=== PATIENT | female | born 1975 | race African-American/Black ===

== ENCOUNTER 2019-04-18 15:38 | Emergency (ER) | payer OTHER ==
[~2019-04-18] VITALS: Ht 157.5 cm; Wt 108.1 kg
[~2019-04-18 15:38] MED LIST: ACCUNEB SO1.25 MG/1 INH; AMOXICILLIN 50500 MG PO; MOBIC7.5 MG PO
[2019-04-18 16:26] LABS: ABSOLUTE BASOPHILS 0.1 thou/uL (0.0-0.2); ABSOLUTE EOSINOPHILS 0.1 thou/uL (0.0-0.7); ABSOLUTE LYMPHOCYTES 1.1 thou/uL (0.8-5.3); ABSOLUTE MONOCYTES 0.4 thou/uL (0.0-1.2); ABSOLUTE NEUTROPHILS 2.7 thou/uL (1.6-8.1); BASOPHILS 1.4 %; EOSINOPHILS 2.7 %; HEMATOCRIT 31.6 % (37.0-47.0); HEMOGLOBIN 9.7 gm/dL (12.0-15.0); MCHC 30.8 g/dL (28.0-37.0); MCV 71.4 fL (80.0-100.0); MPV 9.6 fl. (7.2-11.1); NUCLEATED RBCS 0 /100WBC; PLATELET COUNT* 270 thou/uL (150-400); POLYS 61.9 %; RBC 4.42 mil/uL (4.20-5.00); RDW-CV 18.9 % (10.5-14.5); WBC 4.4 thou/uL (4.0-11.0)
[2019-04-18 16:44] LABS: CALCIUM 9.3 mg/dL (8.5-10.1); CREATININE 0.8 mg/dL (0.6-1.3); POTASSIUM 3.9 mmol/L (3.5-5.1)
[2019-04-18 16:48] LABS: ALBUMIN 3.4 g/dL (3.4-5.0); TOTAL BILIRUBIN 0.3 mg/dL (<0.1-1.0); TOTAL PROTEIN 7.9 g/dL (6.4-8.2)
[2019-04-18 17:57] LABS: ANISOCYTOSIS 1+; HYPOCHROMASIA 2+; MICROCYTES 2+; PLATELET ESTIMATE ADEQUATE
[2019-04-18 17:58] LABS: LARGE PLATELETS RARE
[2019-04-18 17:59] LABS: POLYCHROMASIA Occasional
[2019-04-18 18:07] VITALS: BP 174/115
[2019-04-18 18:23] LABS: URINE BILIRUBIN NEGATIVE (Negative); URINE BLOOD 2+ (Negative); URINE CLARITY CLEAR; URINE COLOR YELLOW; URINE GLUCOSE-RANDOM NEGATIVE (Negative); URINE KETONES NEGATIVE (Negative); URINE LEUKOCYTES-REFLEX TRACE (Negative); URINE NITRITE-REFLEX NEGATIVE (Negative); URINE PROTEIN NEGATIVE (Negative); URINE UROBILINOGEN 0.2 E.U./dl (0.2-1.0)
[2019-04-18 18:32] LABS: MUCUS None Seen strn/LPF (None Seen); SQUAMOUS >10 Many /LPF (0-3); URINE RBC 3-10 Few /HPF (0-2)
[2019-04-18 18:33] LABS: CASTS None Seen /LPF (None Seen); CRYSTALS None Seen /LPF (None Seen); URINE WBC-REFLEX 6-15 Few /HPF (0-5)
--- NOTE | 2019-04-21 08:29 | EKG ---
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
== END 2019-04-18 18:25 | disposition home or self-care (01) ==
LOC: M.ERS 15:38
PROVIDERS: Nurse Practitioner Family
DX: R20.2 Paresthesia of skin (principal); J45.909 Unspecified asthma, uncomplicated

== ENCOUNTER 2020-01-03 17:18 | Emergency (ER) | payer OTHER ==
[~2020-01-03] VITALS: Ht 157.5 cm; Wt 113.4 kg
[2020-01-03 18:12] LABS: INFLUENZA A ANTIGEN Negative (Negative); INFLUENZA B ANTIGEN Negative (Negative)
[2020-01-03 18:21] LABS: HEMATOCRIT 33.6 % (37.0-47.0); HEMOGLOBIN 10.4 gm/dL (12.0-15.0); MCH 21.8 pg (26.0-34.0); MCHC 30.9 g/dL (28.0-37.0); MCV 70.7 fL (80.0-100.0); MPV 9.2 fl. (7.2-11.1); NUCLEATED RBCS 0 /100WBC; PLATELET COUNT* 242 thou/uL (150-400); RBC 4.75 mil/uL (4.20-5.00); RDW-CV 18.6 % (10.5-14.5); WBC 6.6 thou/uL (4.0-11.0)
[2020-01-03 18:30] LABS: CALCIUM 8.3 mg/dL (8.5-10.1); POTASSIUM 3.3 mmol/L (3.5-5.1)
[2020-01-03] MEDS ORDERED: HYDROCHLOROTH12.5 M2 PO ×2 (18:47→18:51)
[2020-01-03] MEDS ORDERED: PREDNISONE 20 M20 MG PO ×2 (18:47→18:51)
[2020-01-03] MEDS ORDERED: ZPAK PO ×2 (18:47→18:51)
[2020-01-03] MEDS ORDERED: PROAIR HFA8.5 GM INH ×2 (18:47→18:51)
[2020-01-03 18:52] LABS: ABSOLUTE LYMPHOCYTES 0.6 thou/uL (0.8-5.3); ABSOLUTE MONOCYTES 0.3 thou/uL (0.0-1.2); ABSOLUTE NEUTROPHILS 5.7 thou/uL (1.6-8.1)
[2020-01-03 18:53] LABS: ANISOCYTOSIS 1+; PLATELET ESTIMATE ADEQUATE
[2020-01-03 18:54] LABS: HYPOCHROMASIA 1+; MICROCYTES 2+
[2020-01-03 19:34] VITALS: BP 165/89
== END 2020-01-03 19:35 | disposition home or self-care (01) ==
LOC: M.ERS 17:18
PROVIDERS: Nurse Practitioner Psychiatric/Mental Health
DX: U07.1 COVID-19 (principal); J45.901 Unspecified asthma with (acute) exacerbation; I10 Essential (primary) hypertension; E87.6 Hypokalemia; J18.1 Lobar pneumonia, unspecified organism

== ENCOUNTER 2020-02-29 15:45 | Emergency (ER) | payer OTHER ==
[~2020-02-29] VITALS: Ht 157.5 cm; Wt 113.4 kg
[~2020-02-29 15:45] MED LIST changes: +HYDROCHLOROTH12.5 M2 PO; +PREDNISONE 20 M20 MG PO; +PROAIR HFA8.5 GM INH; +ZPAK PO
[2020-02-29] MEDS ORDERED: PREDNISONE 20 M20 M1 PO (17:23)
[2020-02-29 17:35] VITALS: BP 183/106
== END 2020-02-29 17:37 | disposition home or self-care (01) ==
LOC: M.ERS 15:45
DX: J45.901 Unspecified asthma with (acute) exacerbation (principal); I10 Essential (primary) hypertension

== ENCOUNTER 2021-03-06 13:48 | Emergency (ER) | payer OTHER ==
[~2021-03-06] VITALS: Ht 157.5 cm; Wt 95.3 kg
[~2021-03-06 13:48] MED LIST changes: +PREDNISONE 20 M20 M1 PO
[2021-03-06 14:25] LABS: ABSOLUTE LYMPHOCYTES 0.8 thou/uL (0.8-5.3); ABSOLUTE MONOCYTES 0.4 thou/uL (0.0-1.2); ABSOLUTE NEUTROPHILS 3.6 thou/uL (1.6-8.1); EOSINOPHILS 0.8 %; HEMATOCRIT 31.8 % (37.0-47.0); HEMOGLOBIN 9.9 gm/dL (12.0-15.0); LYMPHOCYTES 16.2 %; MCH 25.9 pg (26.0-34.0); MCHC 31.1 g/dL (28.0-37.0); MCV 83.3 fL (80.0-100.0); MPV 9.8 fl. (7.2-11.1); NUCLEATED RBCS 0 /100WBC; PLATELET COUNT* 200 thou/uL (150-400); RBC 3.81 mil/uL (4.20-5.00); RDW-CV 17.7 % (10.5-14.5); WBC 4.9 thou/uL (4.0-11.0)
[2021-03-06 14:30] LABS: CALCIUM 8.3 mg/dL (8.5-10.1); POTASSIUM 3.3 mmol/L (3.5-5.1)
[2021-03-06 14:35] LABS: ALBUMIN 3.3 g/dL (3.4-5.0); TOTAL BILIRUBIN 1.2 mg/dL (<0.1-1.0); TOTAL PROTEIN 6.9 g/dL (6.4-8.2)
[2021-03-06] MEDS ORDERED: PREDNISONE50 MG PO (15:42)
[2021-03-06 15:54] VITALS: BP 143/91
== END 2021-03-06 15:54 | disposition home or self-care (01) ==
LOC: M.ERS 13:48
PROVIDERS: Physician Assistant
DX: J45.901 Unspecified asthma with (acute) exacerbation (principal); I10 Essential (primary) hypertension; Z79.899 Other long term (current) drug therapy

== ENCOUNTER 2021-03-10 15:44 | Emergency (ER) | payer OTHER ==
[~2021-03-10] VITALS: Ht 160 cm; Wt 95.3 kg
[~2021-03-10 15:44] MED LIST changes: +PREDNISONE50 MG PO
[2021-03-10 17:15] LABS: HEMATOCRIT 32.8 % (37.0-47.0); HEMOGLOBIN 10.2 gm/dL (12.0-15.0); MCH 26.1 pg (26.0-34.0); MCV 84.3 fL (80.0-100.0); MPV 9.6 fl. (7.2-11.1); NUCLEATED RBCS 0 /100WBC; PLATELET COUNT* 240 thou/uL (150-400); RBC 3.89 mil/uL (4.20-5.00); RDW-CV 18.2 % (10.5-14.5); WBC 9.1 thou/uL (4.0-11.0)
[2021-03-10 17:23] LABS: CALCIUM 8.8 mg/dL (8.5-10.1); CREATININE 0.8 mg/dL (0.6-1.3); POTASSIUM 4.2 mmol/L (3.5-5.1)
[2021-03-10 17:28] LABS: ALBUMIN 3.1 g/dL (3.4-5.0); TOTAL BILIRUBIN 0.8 mg/dL (<0.1-1.0); TOTAL PROTEIN 6.9 g/dL (6.4-8.2)
[2021-03-10 17:47] LABS: ABSOLUTE LYMPHOCYTES 0.5 thou/uL (0.8-5.3); ABSOLUTE MONOCYTES 0.5 thou/uL (0.0-1.2); PLATELET ESTIMATE ADEQUATE
[2021-03-10] MEDS ORDERED: DOXYCYCLINE 10100 M2 PO (19:55)
[2021-03-10] MEDS ORDERED: HYDROCHLOROTHIA25 M1 PO (19:56)
[2021-03-10 20:10] VITALS: BP 158/95
--- NOTE | 2021-03-11 10:11 | EKG ---
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: : 1975 Requested By: Thierry Prieto Order Number: [id number] MD: Say Medel Measurements Intervals [place] Rate: 92 P: 68 [place]: 148 QRS: 17 QRSD: 87 T: 87 QT: 377 QTc: 467 Interpretive Statements Sinus rhythm Probable left atrial enlargement Nonspecific T abnormalities, lateral leads Compared to ECG 04/18/2019 16:54:02 T-wave abnormality now present Left ventricular hypertrophy no longer present Electronically Signed On 03-11-2021 10:11:41 MEDIA MARKETING MANAGER by Say Medel [email or web address] <ELECTRONICALLY SIGNED> By: Say Medel MD, FACC 03/11/21 1011 1658 1658 Say Medel MD, [facility] /EPI
== END 2021-03-10 20:10 | disposition home or self-care (01) ==
LOC: M.ERS 15:44
PROVIDERS: Nurse Practitioner Psychiatric/Mental Health
DX: I51.7 Cardiomegaly (principal); Z20.822 Contact with and (suspected) exposure to COVID-19; R06.02 Shortness of breath; E87.1 Hypo-osmolality and hyponatremia; I10 Essential (primary) hypertension; J18.9 Pneumonia, unspecified organism; J45.909 Unspecified asthma, uncomplicated; Z98.51 Tubal ligation status; Z79.899 Other long term (current) drug therapy

== ENCOUNTER 2021-04-25 16:25 | Emergency (ER) | payer OTHER ==
[~2021-04-25] VITALS: Ht 157.5 cm; Wt 99.8 kg
[~2021-04-25 16:25] MED LIST changes: +DOXYCYCLINE 10100 M2 PO; +HYDROCHLOROTHIA25 M1 PO
[2021-04-25 17:26] LABS: URINE BILIRUBIN NEGATIVE (Negative); URINE BLOOD 3+ (Negative); URINE CLARITY CLEAR; URINE COLOR YELLOW; URINE GLUCOSE-RANDOM NEGATIVE (Negative); URINE KETONES 2+ (Negative); URINE LEUKOCYTES NEGATIVE (Negative); URINE NITRITE NEGATIVE (Negative); URINE PROTEIN TRACE (Negative); URINE SPECIFIC GRAVITY 1.025 (1.005-1.030)
[2021-04-25 17:34] LABS: SQUAMOUS >10 Many /LPF (0-3)
[2021-04-25 17:35] LABS: CASTS None Seen /LPF (None Seen); CRYSTALS None Seen /LPF (None Seen); URINE RBC 3-10 Few /HPF (0-2); URINE WBC 0-5 Rare /HPF (0-5)
[2021-04-25 19:09] LABS: HEMATOCRIT 34.1 % (37.0-47.0); HEMOGLOBIN 10.7 gm/dL (12.0-15.0); MCH 25.1 pg (26.0-34.0); MCHC 31.5 g/dL (28.0-37.0); MCV 79.6 fL (80.0-100.0); MPV 9.3 fl. (7.2-11.1); NUCLEATED RBCS 0 /100WBC; PLATELET COUNT* 261 thou/uL (150-400); RBC 4.28 mil/uL (4.20-5.00); RDW-CV 17.6 % (10.5-14.5); WBC 10.6 thou/uL (4.0-11.0)
[2021-04-25 19:19] LABS: CALCIUM 8.4 mg/dL (8.5-10.1); CREATININE 0.9 mg/dL (0.6-1.3); POTASSIUM 3.1 mmol/L (3.5-5.1)
[2021-04-25 19:24] LABS: ALBUMIN 3.3 g/dL (3.4-5.0); TOTAL BILIRUBIN 1.2 mg/dL (<0.1-1.0); TOTAL PROTEIN 7.5 g/dL (6.4-8.2)
[2021-04-25 19:26] LABS: ABSOLUTE MONOCYTES 0.5 thou/uL (0.0-1.2); ABSOLUTE NEUTROPHILS 9.1 thou/uL (1.6-8.1)
[2021-04-25 19:27] LABS: PLATELET ESTIMATE ADEQUATE
[2021-04-25] MEDS ORDERED: CIPRO500 M1 PO (21:26)
[2021-04-25] MEDS ORDERED: METRONIDAZOLE500 M4 PO (21:27)
[2021-04-25] MEDS ORDERED: ZOFRAN ODT4 MG PO (21:27)
[2021-04-25] MEDS ORDERED: HYDROCODON-ACE1 EAC7 PO (21:38)
[2021-04-25 21:57] VITALS: BP 155/85
--- NOTE | 2021-04-26 10:39 | EKG ---
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 <ELECTRONICALLY SIGNED> By: James Leyva MD, FACC 04/26/21 1039 12 12 James Leyva MD, FACC /EPI
== END 2021-04-25 21:57 | disposition home or self-care (01) ==
LOC: M.ERS 16:25
PROVIDERS: Nurse Practitioner Family; Physician Assistant
DX: K57.32 Diverticulitis of large intestine without perforation or abscess without bleeding (principal); K76.9 Liver disease, unspecified; J45.909 Unspecified asthma, uncomplicated; I10 Essential (primary) hypertension; E66.9 Obesity, unspecified; Z98.51 Tubal ligation status; Z68.41 Body mass index [BMI] 40.0-44.9, adult; Z79.899 Other long term (current) drug therapy